=== PATIENT | female | born 1990 | race Caucasian/White ===

== ENCOUNTER → 2017-04-27 | Outpatient (CLI) | payer OTHER ==
[2017-04-27 15:55] LABS: BACTERIA,URINE FEW; BILIRUBIN,URINE NEGATIVE (NEG); CLARITY,URINE CLEAR (CLEAR); COLOR,URINE YELLOW; GLUCOSE, URINE (UA) NEGATIVE (NEG); NITRATE,URINE NEGATIVE (NEG); OCCULT BLOOD,URINE NEGATIVE (NEG); PH,URINE 5.5 (5.0-8.5); PROTEIN,URINE NEGATIVE (NEG); SQUAMOUS EPITHELIAL CELL,UR FEW; URINE CASTS RARE; URINE SAMPLE TYPE CLEAN CATCH URINE; UROBILINOGEN,URINE 0.2 mg/dL (0.2); WBC,URINE 50-60
== END ==
LOC: LAB 15:42
PROVIDERS: ATTEND Family Medicine
DX: R30.0 Dysuria (principal)
CPT/HCPCS: 81001; 87088

== ENCOUNTER 2019-08-01 04:47 | Inpatient (IN) ==
[2019-08-01] MEDS ORDERED: FAMOTIDINE 20 MG/2 ML VIAL IVP ONE (04:53)
[2019-08-01] MEDS ORDERED: Metoclopramide Inj 10 MG/2 ML VIAL IV ONE (04:53)
[2019-08-01] MEDS ORDERED: LIDOCAINE W/ SODIUM BICARB 0.5 ML SYR SUBD PRN (04:53)
[2019-08-01] MEDS ORDERED: CefOXitin Inj 2 GM in Sodium Chloride 0.9% 100 ML IV ONE (04:53)
[2019-08-01] MEDS ORDERED: CITRIC ACID/SODIUM CITRATE 30 ML CUP PO ONE (04:53)
[2019-08-01] MEDS ORDERED: Lactated Ringers 1,000 ML PRIMARY IV ONE ×2 (04:53→08:21)
[2019-08-01] MEDS ORDERED: LIDOCAINE HCL 2 % 10 ML JELLY URO-JECT TOPICAL PRN (04:53)
[2019-08-01] MEDS ORDERED: Oxytocin 20 Units + LR 20 UNIT/1,000 ML BAG IV SCH ×2 (05:00→09:21)
[2019-08-01] MEDS ORDERED: Lactated Ringers 1,000 ML PRIMARY IV SCH (05:00)
[2019-08-01] MEDS ORDERED: Influenza 19-20 Vaccine (6mo+) 60 MCG/0.5 ML SYRINGE IM ONE (06:25)
[2019-08-01 06:34] LABS: Hemoglobin [HGB] 11.1 g/dL (12.0-16.0); MEAN CORPUSCULAR HGB CONC 31.7 g/dL (33-37); MEAN CORPUSCULAR VOLUME 91.6 FL (81-99); MEAN PLATELET VOLUME 10.8 FL (7.4-12.2); RED BLOOD COUNT 3.82 10^6/uL (4.20-5.40)
[2019-08-01] MEDS ORDERED: fentaNYL Inj 100 MCG/2 ML VIAL ONE (07:02)
[2019-08-01] MEDS ORDERED: Sodium Chloride 0.9% vial 10 ML ONE (07:03)
[2019-08-01] MEDS ORDERED: BUPIVACAINE SPINAL 7.5 MG/1 ML - 2 ML IV ONE (07:06)
[2019-08-01] MEDS ORDERED: ONDANSETRON 4 MG/2 ML VIAL ONE (07:30)
[2019-08-01] MEDS ORDERED: D5-LR 1,000 ML PRIMARY IV SCH (09:21)
[2019-08-01] MEDS ORDERED: BUTORPHANOL TARTRATE 2 MG/1 ML VIAL IVP PRN (09:21)
[2019-08-01] MEDS ORDERED: CALCIUM CARBONATE 500 MG (TUMS) CHEWABLE TABLET PO PRN (09:21)
[2019-08-01] MEDS ORDERED: LANOLIN HPA 40 GM TUBE TOPICAL PRN (09:21)
[2019-08-01] MEDS ORDERED: Naloxone Inj 0.01 MG, Sodium Chloride 0.9% vial 1 ML IVP PRN ×2 (09:21)
[2019-08-01] MEDS ORDERED: Nalbuphine Inj 20 MG/ML Ampule IVP PRN (09:21)
[2019-08-01] MEDS ORDERED: ONDANSETRON 4 MG/2 ML VIAL IVP PRN (09:21)
[2019-08-01] MEDS ORDERED: DIPH,PERTUSS,TET(ADACEL) VAC/PF 0.5 ML (Tdap) IM ONE (09:21)
[2019-08-01] MEDS ORDERED: diphenhydrAMINE 50 MG/1 ML VIAL IV PRN (09:21)
[2019-08-01] MEDS ORDERED: diphenhydrAMINE 25 MG CAPSULE PO PRN (09:21)
[2019-08-01] MEDS ORDERED: FAMOTIDINE 20 MG/2 ML VIAL IVP PRN (09:21)
[2019-08-01] MEDS: KETOROLAC 15 MG/1 ML VIAL IVP SCH ×3 (09:35→22:03)
[2019-08-01] MEDS: oxyCODONE-ACETAMINOPHEN 5-325 TAB PO PRN ×3 (10:25→22:02)
[2019-08-02] MEDS: oxyCODONE-ACETAMINOPHEN 5-325 TAB PO PRN ×4 (03:57→20:55)
[2019-08-02] MEDS: KETOROLAC 15 MG/1 ML VIAL IVP SCH ×2 (03:58→09:04)
[2019-08-02 05:23] LABS: Hematocrit [HCT] 28.6 % (37.0-47.0); Hemoglobin [HGB] 9.1 g/dL (12.0-16.0); MEAN CORPUSCULAR HGB CONC 31.8 g/dL (33-37); MEAN CORPUSCULAR VOLUME 92.6 FL (81-99); MEAN PLATELET VOLUME 10.9 FL (7.4-12.2); RED BLOOD COUNT 3.09 10^6/uL (4.20-5.40)
[2019-08-02] MEDS: Prenatal Multivitamin Tab 1 TAB TAB PO SCH (09:05)
[2019-08-02] MEDS: Senna/Docusate Tab 1 TAB TAB PO SCH ×2 (09:05→19:59)
[2019-08-02] MEDS: IBUPROFEN 800 MG TABLET PO SCH ×2 (15:59→22:08)
[2019-08-02] MEDS: POLYETHYLENE GLYCOL 3350 17 GM POWDER PO SCH (19:59)
[2019-08-03] MEDS: oxyCODONE-ACETAMINOPHEN 5-325 TAB PO PRN ×4 (00:43→13:00)
[2019-08-03] MEDS: IBUPROFEN 800 MG TABLET PO SCH (06:23)
[2019-08-03 06:27] VITALS: RESP 18
[2019-08-03] MEDS: Prenatal Multivitamin Tab 1 TAB TAB PO SCH (09:06)
[2019-08-03] MEDS: Senna/Docusate Tab 1 TAB TAB PO SCH (09:06)
[2019-08-03] MEDS: POLYETHYLENE GLYCOL 3350 17 GM POWDER PO SCH (09:06)
[2019-08-03 13:11] VITALS: BP 102/54; TEMP 98.5; O2SAT 99
== END 2019-08-03 13:45 | disposition home or self-care (01) | DRG 788 ==
LOC: OBOR 04:47 → OBIP 09:00
PROVIDERS: ADMIT Obstetrics & Gynecology; ATTEND Obstetrics & Gynecology